=== PATIENT | female | born 1985 | race American Indian/Alaskan Native ===

== ENCOUNTER 2020-11-21 08:33 | Outpatient (CLI) | payer OTHER | END 2020-11-21 08:34 | disposition home or self-care (01) | LOC: LABHHL 08:33 | PROVIDERS: ATTEND Surgery | DX: N60.22 Fibroadenosis of left breast (principal) | CPT/HCPCS: 88305; 88342 ==

== ENCOUNTER 2020-11-27 11:21 | Outpatient (CLI) | payer OTHER ==
--- NOTE | 2020-11-27 12:15 | Mammography Report ---
DIGITAL DIAGNOSTIC MAMMOGRAM WITH CAD CONVENTIONAL, 11/27/2020 CLINICAL INFORMATION / INDICATION: POST CLIP FROM 11/20/20 BIOPSY LEFT TECHNIQUE: Digital left mammographic imaging was performed. This examination was interpreted with the benefit of Computer-aided Detection analysis. COMPARISON: Left breast ultrasound 11/05/2020 and 11/20/2020. FINDINGS: Breast Density: The breasts are extremely dense, which lowers the sensitivity of mammography. There is a 2.3 cm ovoid circumscribed mass in the left breast medially in the middle depth superficia lly. There is an associated biopsy clip. The lesion corresponds to the 2.5 cm circumscribed solid les ion seen on ultrasound. No other abnormality is seen. IMPRESSION: 2.3 cm ovoid mass in the left medial breast corresponds to the site of the sonographicall y detected and biopsy lesion. Correlation with pathology is recommended. Follow up recommendation: Unless otherwise clinically indicated, recommend patient return to routine screening mammography at age 38. BI-RADS Category 2: Benign. A "normal" or negative report should not discourage follow up or biopsy of a clinically significant f inding. A written summary of these findings will be mailed to the patient. The patient will be entered into a mammography reporting system which will generate a reminder letter for the patient's next appointmen t at the appropriate interval. According to the [employer], yearly mammograms are recommended starting at age 40 and continuing as long as a woman is in good health. Breast MRI is recommended for women with an addi roximately 20-25% or greater lifetime risk of breast cancer, including women with a strong family his tory of breast or ovarian cancer and women who have been treated for Hodgkin's disease. Signer Name: Troy Guillermo MD Signed: 11/27/2020 12:11 PM Workstation Name: [id number]
== END 2020-11-27 11:22 | disposition home or self-care (01) ==
LOC: SPVWC 11:21
PROVIDERS: ATTEND Surgery
DX: N63.20 Unspecified lump in the left breast, unspecified quadrant (principal)